=== PATIENT | male | born 1980 | race African-American/Black ===

== ENCOUNTER 2020-08-19 21:45 | Emergency (ER) | payer SELFPAY ==
[~2020-08-19] VITALS: Ht 195.6 cm; Wt 101.2 kg
--- NOTE | 2020-08-19 23:29 | NUR ---
medical secretary: Pt ambulatory to room from lobby at this time.
[2020-08-20] MEDS ORDERED: IBUPROFEN 600 MG TABLET PO ONE
[2020-08-20] MEDS ORDERED: OXYcodone/APAP 5/325MG TABLET PO ONE
[2020-08-20] MEDS ORDERED: IBUPROFEN 600 MG TABLET ONE (00:19)
[2020-08-20] MEDS ORDERED: OXYcodone/APAP 5/325MG TABLET ONE (00:19)
[2020-08-20 01:49] VITALS: BP 125/88
== END 2020-08-20 01:50 | disposition home or self-care (01) ==
LOC: ED 23:48
DX: S39.012A Strain of muscle, fascia and tendon of lower back, initial encounter (principal); M25.512 Pain in left shoulder; V47.5XXA Car driver injured in collision with fixed or stationary object in traffic accident, initial encounter; Y93.89 Activity, other specified; Y92.410 Unspecified street and highway as the place of occurrence of the external cause; Y99.8 Other external cause status
CPT/HCPCS: 72110; 99284

== ENCOUNTER 2020-09-09 20:20 | Emergency (ER) | payer SELFPAY ==
[~2020-09-09] VITALS: Ht 195.6 cm; Wt 102.0 kg
[2020-09-09 20:42] VITALS: BP 127/86
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
[2020-09-09] MEDS ORDERED: HYDROcodone/APAP 5/325 TABLET PO ONE (21:30)
[2020-09-09] MEDS ORDERED: KETOROLAC 30 MG/1 ML IM ONE (21:30)
[2020-09-09] MEDS ORDERED: CYCLOBENZAPRINE 10 MG TABLET PO ONE (21:30)
[2020-09-09] MEDS ORDERED: HYDROcodone/APAP 5/325 TABLET ONE (21:32)
[2020-09-09] MEDS ORDERED: CYCLOBENZAPRINE 10 MG TABLET ONE (21:32)
[2020-09-09] MEDS ORDERED: KETOROLAC 30 MG/1 ML ONE (21:32)
--- NOTE | 2020-09-09 21:34 | NUR ---
PT TO XRAY.
--- NOTE | 2020-09-09 21:41 | NUR ---
MEDICATED PER MAR.
== END 2020-09-09 22:10 | disposition home or self-care (01) ==
LOC: ED 21:00
DX: S39.012A Strain of muscle, fascia and tendon of lower back, initial encounter (principal); S46.912A Strain of unspecified muscle, fascia and tendon at shoulder and upper arm level, left arm, initial encounter; S46.911A Strain of unspecified muscle, fascia and tendon at shoulder and upper arm level, right arm, initial encounter; X58.XXXA Exposure to other specified factors, initial encounter; Y93.89 Activity, other specified; Y92.89 Other specified places as the place of occurrence of the external cause; Y99.8 Other external cause status
CPT/HCPCS: 73030; 96372; 99283; J1885